=== PATIENT | female | born 1940 | race Caucasian/White ===

== ENCOUNTER → 2018-01-21 | Outpatient (CLI) | payer MEDICARE, OTHER ==
[~2018-01-21] MED LIST: ALLEGRA 180MG180 MG PO; ALLEGRA60 MG PO; ATENOLOL; DETROL; DETROL LA 2 MG2 MG PO; FLONASE NASAL S16 GM NS; HCTZ; LODINE XL400 MG PO; LORTAB 5/500 501 TAB PO; MINIPRESS; MUCINEX 60600 MG/TA1 PO; PREDNISONE20 MG PO; PRIL40 PO; SINGULAIR; TAMIFLU 75MG75 MG PO; TYLENOL 8 HR PO
== END ==
LOC: MC.RAD 13:32
DX: Z12.31 Encounter for screening mammogram for malignant neoplasm of breast (principal)

== ENCOUNTER 2021-08-31 12:05 | Observation (INO) | payer MEDICARE, OTHER ==
[~2021-08-31] VITALS: Ht 162.6 cm; Wt 90.8 kg
[2021-08-31 12:41] LABS: HEMOGLOBIN 14.9 g/dl (12.5-16.0); MEAN CELL VOLUME 87 fl (80.0-100.0); MEAN CORPUSCULAR HEMOGLOBIN 30 pg (27-31); MEAN CORPUSCULAR HGB CONC 34 g/dl (33.0-37.0); MEAN PLATELET VOLUME 10.7 fl (7.4-10.4); PLATELET COUNT 258 K/mm3 (130-400); RED BLOOD COUNT 5.04 M/mm3 (4.10-5.30); REDCELL DISTRIBUTION WIDTH-CV 12.3 % (11.5-14.5)
[2021-08-31 12:55] LABS: BAND 2 % (0-10); LYMPHOCYTE 8 % (20.0-51.0); NEUTROPHILS 82 % (42.0-75.2); PLATELET ESTIMATE NORMAL (NORMAL)
[2021-08-31 13:02] LABS: ALBUMIN 4.2 gm/dL (3.4-4.8); BILIRUBIN,TOTAL 0.9 mg/dL (0.2-1.2); CALCIUM 9.4 mg/dL (8.4-10.2); CREATININE, serum 1.27 mg/dL (0.57-1.11); TOTAL PROTEIN 7.2 gm/dL (6.2-8.1)
[2021-08-31 13:08] LABS: TROPONIN-I 0.023 ng/mL (0.00-0.033)
[2021-08-31 13:29] LABS: COLLECTION METHOD CLEAN CATCH
[2021-08-31 13:53] LABS: MUCOUS Present (NOT PRESENT); PH 6 (5-8); URINE APPEARANCE Cloudy (CLEAR/HAZY); URINE BACTERIA Rare /hpf (NONE SEEN); URINE BLOOD 2+ (NEGATIVE); URINE COLOR Yellow (YELLOW); URINE GLUCOSE Negative (NEGATIVE); URINE KETONE Negative (NEGATIVE); URINE NITRATE Negative (NEGATIVE); URINE PROTEIN(semi-quant) Negative (NEGATIVE); URINE RBC 0-2 /hpf (0-2); URINE WBC 0-2 /hpf (0-2)
[2021-08-31 17:34] VITALS: BP 151/53; PULSE 77; TEMP 97.7
[2021-08-31] MEDS ORDERED: ZYRTEC5 MG PO (18:02)
[2021-08-31] MEDS ORDERED: DETROL1 MG (18:04)
[2021-08-31] MEDS ORDERED: WELLBUTRIN XL300 M1 PO (18:07)
[2021-08-31] MEDS ORDERED: ZOLOFT 50MG50 MG PO (18:08)
[2021-08-31] MEDS ORDERED: DETROL LA4 PO (19:11)
[2021-08-31] MEDS ORDERED: CARDURA 8MG TAB8 MG PO (19:12)
[2021-08-31] MEDS ORDERED: SINGULAIR 110 MG/TAB PO (19:12)
[2021-08-31] MEDS ORDERED: HYGROTON50 MG PO (19:13)
[2021-08-31] MEDS ORDERED: RT ADVAIR 228 DISKUS IH (19:16)
--- NOTE | 2021-08-31 19:23 | NUR ---
PATIENT ARRIVED TO UNIT, MOVED TO BED, GOWN CHANGED TO FALL PRECUATIONS GOWN, WRIST BAND AND ALARMS. PATIENT ASSESMENT PREFORMED, TELE MONITOR PLACED AND IV FLUIDS/ANTIBIOTICS AND POTASSIUM REPLACEMENT STARTED. CALL MARCH WITH IN REACH. NO CONCERNS AT THIS TIME. C/O STOMACH CRAMPING AT THIS TIME.
[2021-08-31 20:25] VITALS: BP 147/81; PULSE 79; TEMP 98.2
--- NOTE | 2021-08-31 22:26 | NUR ---
Patient assessed around 2014. Complaining of pain to IV site. Redness/edema/drainage to site. D/C'd IV site. Unable to get new one started. Had another nurse start one to her right wrist area. IV fluids/Potassium/Zosyn restarted per orders. Within 30 minutes patient complaining of burning to IV site. Potassium had been running slow. Called pharmacy and changed patient to oral replacement due to not being able to tolerate IV. Denies nausea and upset stomach. Order to replace with 60 meq po due to already having about 20 meq via IV. Still needing GI panel and sputum sample at this time. Patient aware. In bed with call light within reach. Bed alarm on.
[2021-08-31 23:07] VITALS: BP 127/75; PULSE 91; TEMP 98
[2021-09-01 03:11] VITALS: BP 142/67; PULSE 83; TEMP 98.6
--- NOTE | 2021-09-01 05:28 | NUR ---
Patient has been in bed with call light within reach. Recieved PRN APAP for headache during the night as requested. Continues on IV fluids and ABX per orders. Voices no questions, needs, or concerns at this time. In bed with call light within reach. Bed alarm on.
[2021-09-01 06:43] LABS: HEMATOCRIT 39.1 % (37.0-47.0); HEMOGLOBIN 13.2 g/dl (12.5-16.0); MEAN CELL VOLUME 87 fl (80.0-100.0); MEAN CORPUSCULAR HEMOGLOBIN 29 pg (27-31); MEAN CORPUSCULAR HGB CONC 34 g/dl (33.0-37.0); MEAN PLATELET VOLUME 10.4 fl (7.4-10.4); PLATELET COUNT 249 K/mm3 (130-400); REDCELL DISTRIBUTION WIDTH-CV 12.3 % (11.5-14.5)
[2021-09-01 07:05] LABS: CALCIUM 8.9 mg/dL (8.4-10.2); CREATININE, serum 0.97 mg/dL (0.57-1.11); POTASSIUM 3.1 mmol/L (3.5-4.5)
[2021-09-01 07:47] LABS: LYMPHOCYTE 9 % (20.0-51.0); NEUTROPHILS 91 % (42.0-75.2)
[2021-09-01 07:48] LABS: PLATELET ESTIMATE NORMAL (NORMAL)
[2021-09-01 08:19] VITALS: BP 144/54; PULSE 70; TEMP 99.1
[2021-09-01 12:15] VITALS: BP 146/49; PULSE 65; TEMP 98.7
[2021-09-01] MEDS ORDERED: AMOXICILLIN 8751 TAB PO (14:08)
[2021-09-01] MEDS ORDERED: DOXYCYCLINE 10100 MG PO (14:09)
[2021-09-01] MEDS ORDERED: KLOR-CON 1010 MEQ PO (14:16)
--- NOTE | 2021-09-01 14:49 | NUR ---
Central Control Room Operator contacted patient by phone as she is in isolation for covid. Patient is from [email or web address]] and is ready for discharge today. SW reviewed TSAI form with patient as she is being downgraded to observation status. Patient verbalized understanding and gave verbal consent as signature. SW placed form in chart and provided copy to patient. Patient is agreeable to discharge back to [place] today and would like Home Health services from [facility]. Patient lives with her , Elroy and sees Dr. Varela for primary care. Patient obtains medications from either [facility] or [facility] with no difficulties. Patient has a cane at home and reports she plans to borrow a walker from her friend at time of discharge. SW offered to help patient order her own FWW, however patient declined. Patient reports she has DPOA-HC completed. GABRIELE contacted Chavez at [facility] and faxed referral and orders. Chavez advised they already had patient slated to admit and will accept. GABRIELE contacted , Elroy and provided update. Elroy is lookin gforward to having patient home and is agreeable with plan for discharge with Home Health. GABRIELE coordinated with [facility] to set transport time for 1500. GABRIELE notified RN. Discharge Plan: Home with [facility]
--- NOTE | 2021-09-01 15:30 | NUR ---
patient left with [employer] transportation. Left in stable condition. iv discontinued. all discharge paper work with her. all belongings taken
== END 2021-09-01 15:30 | disposition home or self-care (01) ==
LOC: COL.ER 12:05 → MEDICAL 15:16 → EDBEDREQTM 15:40 → EDBEDREQSVC 15:40 → EDBEDREQ 15:40 → MEDICAL 21:00
PROVIDERS: Emergency Medicine; ADMIT Family Medicine
DX: K52.9 Noninfective gastroenteritis and colitis, unspecified (principal); K57.32 Diverticulitis of large intestine without perforation or abscess without bleeding; N17.9 Acute kidney failure, unspecified; U07.1 COVID-19; J45.30 Mild persistent asthma, uncomplicated; E87.6 Hypokalemia; J45.909 Unspecified asthma, uncomplicated; I10 Essential (primary) hypertension; F32.A Depression, unspecified; N32.81 Overactive bladder; Z79.899 Other long term (current) drug therapy
CPT/HCPCS: G0378; J1644; J2405; J2543; J3480; J7030; J8540; Q9967

== ENCOUNTER 2021-09-13 23:14 | Emergency (ER) | payer MEDICARE, OTHER ==
[~2021-09-13] VITALS: Ht 162.6 cm; Wt 90.9 kg
[~2021-09-13 23:14] MED LIST changes: +AMOXICILLIN 8751 TAB PO; +CARDURA 8MG TAB8 MG PO; +DETROL LA4 PO; +DETROL1 MG; +DOXYCYCLINE 10100 MG PO; +HYGROTON50 MG PO; +KLOR-CON 1010 MEQ PO; +RT ADVAIR 228 DISKUS IH; +SINGULAIR 110 MG/TAB PO; +WELLBUTRIN XL300 M1 PO; +ZOLOFT 50MG50 MG PO; +ZYRTEC5 MG PO
[2021-09-13 23:16] VITALS: TEMP 98.2
[2021-09-14 00:16] LABS: BASO % 0.2 % (0.0-2.0); EOS # 0.1 K/mm3 (0.0-0.7); EOS % 0.6 % (0.0-4.0); GRAN # 9.3 K/mm3 (1.4-6.5); GRAN % 85.4 % (42.2-75.2); HEMATOCRIT 39.1 % (37.0-47.0); HEMOGLOBIN 13.4 g/dl (12.5-16.0); LYMPH # 0.8 K/mm3 (1.2-3.4); LYMPH % 7.7 % (20.0-51.0); MEAN CELL VOLUME 87 fl (80.0-100.0); MEAN CORPUSCULAR HEMOGLOBIN 30 pg (27-31); MEAN CORPUSCULAR HGB CONC 34 g/dl (33.0-37.0); MEAN PLATELET VOLUME 11.1 fl (7.4-10.4); MONO # 0.6 K/mm3 (0.1-0.6); MONO % 5.6 % (1.7-9.3); PLATELET COUNT 162 K/mm3 (130-400); RED BLOOD COUNT 4.49 M/mm3 (4.10-5.30); REDCELL DISTRIBUTION WIDTH-CV 12.6 % (11.5-14.5)
[2021-09-14 00:27] LABS: ALBUMIN 3.9 gm/dL (3.4-4.8); BILIRUBIN,TOTAL 1.6 mg/dL (0.2-1.2); CALCIUM 9.1 mg/dL (8.4-10.2); CREATININE, serum 0.93 mg/dL (0.57-1.11); POTASSIUM 3.1 mmol/L (3.5-4.5); TOTAL PROTEIN 6.8 gm/dL (6.2-8.1)
[2021-09-14 00:54] LABS: TROPONIN-I 0.014 ng/mL (0.00-0.033)
[2021-09-14 03:11] LABS: COLLECTION METHOD CLEAN CATCH
[2021-09-14 03:17] LABS: MUCOUS Present (NOT PRESENT); PH 6 (5-8); SQUAMOUS EPITHELIAL 0-2 /hpf (0-10); URINE APPEARANCE Clear (CLEAR/HAZY); URINE BACTERIA None Seen /hpf (NONE SEEN); URINE BLOOD Negative (NEGATIVE); URINE COLOR Yellow (YELLOW); URINE GLUCOSE Negative (NEGATIVE); URINE KETONE 1+ (NEGATIVE); URINE NITRATE Negative (NEGATIVE); URINE PROTEIN(semi-quant) Negative (NEGATIVE); URINE RBC 0-2 /hpf (0-2); URINE UROBILINOGEN >=4.0 (NEGATIVE)
[2021-09-14] MEDS ORDERED: ZOFRAN 4MG T4 MG/TAB PO (03:38)
[2021-09-14 04:11] VITALS: BP 106/60; PULSE 84
== END 2021-09-14 04:11 | disposition home or self-care (01) ==
LOC: COL.ER 23:14
PROVIDERS: Emergency Medicine
DX: E86.0 Dehydration (principal); Z20.822 Contact with and (suspected) exposure to COVID-19; Z86.16 Personal history of COVID-19; Z90.49 Acquired absence of other specified parts of digestive tract
CPT/HCPCS: J7030

== ENCOUNTER → 2021-10-30 | Outpatient (CLI) | payer MEDICARE, OTHER ==
[~2021-10-30] MED LIST changes: +ZOFRAN 4MG T4 MG/TAB PO
[2021-10-30 16:30] LABS: COLLECTION METHOD CLEAN CATCH
[2021-10-30 16:36] LABS: MUCOUS Present (NOT PRESENT); URINE APPEARANCE Cloudy (CLEAR/HAZY); URINE BACTERIA Occasional /hpf (NONE SEEN); URINE COLOR Yellow (YELLOW); URINE WBC >50 /hpf (0-2)
[2021-10-30 16:37] LABS: PH 7.5 (5.0-8.5); URINE PROTEIN(semi-quant) 1+ (NEGATIVE)
[2021-10-30 16:38] LABS: URINE BLOOD 1+ (NEGATIVE); URINE GLUCOSE Negative (NEGATIVE); URINE KETONE Negative (NEGATIVE); URINE NITRATE Negative (NEGATIVE)
== END ==
LOC: ZCOL.LAB 14:50
PROVIDERS: Internal Medicine
DX: R30.0 Dysuria (principal)